=== PATIENT | female | born 1950 | race Caucasian/White ===

== ENCOUNTER → 2016-11-24 | Outpatient (CLI) | payer BC ==
[~2016-11-24] MED LIST: ASPI325T45 PO; CHOL100010 PO; MULT-513 PO; vit E PO
--- NOTE | 2016-11-25 07:56 | MAMMOGRAPHY REPORT ---
BILATERAL DIGITAL SCREENING MAMMOGRAM WITH CAD: 11/24/2016 CLINICAL HISTORY: Routine screening. Patient has no complaints. TECHNIQUE: Bilateral CC and MLO views were obtained. Current study was also evaluated with a Comput er Aided Detection (CAD) system. COMPARISON: No prior exams were available for comparison. BREAST COMPOSITION: The tissue of both breasts is heterogeneously dense, which may obscure small mas ses. FINDINGS: There is a possible cluster of faint punctate microcalcifications in the upper outer quadr ant of the left breast, for which additional spot magnification views are recommended. No other suspicious mass, architectural distortion or cluster of microcalcifications is seen bilatera lly. IMPRESSION: ACR BI-RADS CATEGORY 0: INCOMPLETE EVALUATION: NEED ADDITIONAL IMAGING EVALUATION The possible cluster of faint punctate microcalcifications in the left upper outer breast needs addit ional evaluation. The patient will be called to schedule an appointment. Approximately 10% of breast cancers are not detected with mammography. A negative mammographic report should not delay biopsy if a clinically suggestive mass is present. Sandra Harris M.D. ay/:11/24/2016 16:27:05 Cofounder: Viktoriya GARRISON(R)(M), [facility] letter sent: Addl Imaging 0 BI-RADS Code: ACR BI-RADS Category 0: Incomplete Evaluation: Need Additional Imaging Evaluation
== END | disposition home or self-care (01) ==
LOC: C.MAMM 13:34
PROVIDERS: ATTEND Nurse Practitioner Family
DX: Z12.31 Encounter for screening mammogram for malignant neoplasm of breast (principal); R92.0 Mammographic microcalcification found on diagnostic imaging of breast; M85.88 Other specified disorders of bone density and structure, other site; M85.851 Other specified disorders of bone density and structure, right thigh; M85.852 Other specified disorders of bone density and structure, left thigh

== ENCOUNTER → 2016-11-26 | Outpatient (CLI) | payer BC ==
--- NOTE | 2016-11-26 12:29 | MAMMOGRAPHY REPORT ---
UNILATERAL LEFT DIGITAL DIAGNOSTIC MAMMOGRAM: 11/26/2016 CLINICAL HISTORY: Callback from screening mammogram for left breast calcifications. TECHNIQUE: Spot magnification left CC and ML views were obtained. COMPARISON: Comparison is made to exam dated: 11/24/2016 mammogram - [facility]. BREAST COMPOSITION: The tissue of the left breast is heterogeneously dense, which may obscure small masses. FINDINGS: Spot magnification views of the left breast demonstrate clustered and loosely grouped azra t punctate and amorphous calcifications in the left upper outer quadrant. Given no priors to documen t stability, the calcifications are indeterminant. The options of stereotactic biopsy versus short i nterval follow-up were discussed with the patient. The patient is very afraid of needles and does no t want to undergo biopsy at this time. At this time, we will up for follow-up and biopsy will be pe rformed if there is any increase on the follow-up. IMPRESSION: ACR-BI-RADS CATEGORY 3: PROBABLY BENIGN Clustered and loosely grouped punctate and amorphous calcifications in the left upper outer quadrant. Recommend follow-up diagnostic tomosynthesis mammograms of the left breast in 6 months to confirm s tability on spot magnification views, given no priors to document stability. The patient has been verbally notified of the results. Approximately 10% of breast cancers are not detected with mammography. A negative mammographic report should not delay biopsy if a clinically suggestive mass is present. Jonna Luna M.D. ah/:11/26/2016 10:51:11 Manufacturing Support Engineer: Becky DOWD)(Shweta), [facility] letter sent: Follow Up Recommended 3 BI-RADS Code: ACR-BI-RADS Category 3: Probably Benign
== END | disposition home or self-care (01) ==
LOC: C.MAMM 10:04
PROVIDERS: ATTEND Nurse Practitioner Family
DX: R92.1 Mammographic calcification found on diagnostic imaging of breast (principal)

== ENCOUNTER → 2017-05-27 | Outpatient (CLI) | payer BC ==
--- NOTE | 2017-05-28 07:22 | MAMMOGRAPHY REPORT ---
UNILATERAL LEFT DIGITAL DIAGNOSTIC MAMMOGRAM TOMOSYNTHESIS WITH CAD: 05/27/2017 CLINICAL HISTORY: Short interval follow-up of left breast calcifications. TECHNIQUE: Breast tomosynthesis in addition to standard 2D mammography was performed. Current study was also evaluated with a Computer Aided Detection (CAD) system. Left CC and MLO 2D and tomosynthes is images and spot magnification left CC and ML views were obtained. COMPARISON: Comparison is made to exams dated: 11/26/2016 mammogram and 11/24/2016 mammogram - [facility]. BREAST COMPOSITION: The tissue of the left breast is heterogeneously dense, which may obscure small masses. FINDINGS: Spot magnification views of the left breast demonstrate a small 7 mm group of punctate and amorphous calcifications within the left upper outer quadrant, best seen on the cc view. The size of the cluster does not appear significantly changed, however, the number of the calcifications within the group appear increased compared to the prior October 2016 exam. Given the interval increase, t he calcifications are indeterminate and stereotactic biopsy is recommended for further evaluation. A nother smaller similar-appearing 2 mm cluster of calcifications is seen within the left breast latera l to the larger group, best seen on the cc view; the calcifications in this cluster do not appear sig nificantly changed. The remainder of the left breast is stable compared to prior exams, without suspicious masses, calcif ications, or areas of architectural distortion noted. Other scattered benign-appearing calcification s are stable. It was discussed with the patient that I recommend stereotactic biopsy given that the calcifications have increased and DCIS cannot be excluded at this time. The patient reports that she is deathly afr aid of needles and does not wish to undergo stereotactic biopsy. Surgical biopsy could instead be pe rformed, however, the patient would still need a mammographic-guided needle localization prior to dennise eymi. After discussion, the patient does not want to undergo any procedures and would like to contin ue to follow the calcifications with mammograms. IMPRESSION: ACR BI-RADS CATEGORY 4: SUSPICIOUS 1. Slight interval increase in the number of calcifications within a 7 mm group of calcifications wi thin the left upper outer quadrant. Given the interval increase in calcifications, the calcification s are indeterminant for DCIS and stereotactic biopsy is recommended for further evaluation. The joelle ent is afraid of needles and does not wish to undergo either a stereotactic biopsy or needle localiza tion and surgical biopsy. The patient would like to continue to follow the calcifications mammograph ically; although I do not recommend follow-up, consider follow-up bilateral diagnostic tomosynthesis mammograms in 6 months to reevaluate the calcifications and for routine mammography of the right [address]. 2. Small 2 mm cluster of calcifications in the left lateral breast, lateral to the dominant group, n ot significantly changed compared to the October 2016 exam. If biopsy is performed of the dominant group, then management of this catheter will be based on the pathology results. If follow-up is per formed, then these calcifications should be reassessed at the time of follow-up. A phone call was made to the physician's office to confirm faxed results were received. The patient has been verbally notified of the results. Approximately 10% of breast cancers are not detected with mammography. A negative mammographic report should not delay biopsy if a clinically suggestive mass is present. Jonna Luna M.D. ah/:05/27/2017 14:40:40 Gasoline Service Attendant: Luanne GARRISON(Gely)(Shweta), [facility] letter sent: Abnormal 4/5 BI-RADS Code: ACR BI-RADS Category 4: Suspicious
== END | disposition home or self-care (01) ==
LOC: C.MAMM 13:34
PROVIDERS: ATTEND Nurse Practitioner Family
DX: R92.1 Mammographic calcification found on diagnostic imaging of breast (principal)